=== PATIENT | female | born 1990 | race American Indian/Alaskan Native ===

== ENCOUNTER 2018-06-27 10:09 | Observation (INO) | payer BC ==
--- NOTE | 2018-06-22 15:17 | History and Physical Report ---
History of Present Illness Date of examination: 06/27/18 History of present illness: Patient has been reassessed/reevaluated/re-examined. No interval changes. This is a 28 years old female who presents witht complains of dysmenorrhea, dyspareunia, abnormal periods and pelvic pain, but denies abnormal pap smears, menorrhagia, metrorrhagia, post-coital bleeding, abnormal vaginal discharge, breast mass or lumps, depression, anxiety, urinary symptoms, chest pain, palpitations, shortness of breath, leg swelling, back pain, abdominal pain, headaches and bowel problems. The patient notes that she is sexually active and uses contraception. The patient reports that she has irregular menses. The onset of symptoms began >3 years ago. Patient s/p mutiple minimally invasive surgeries without relief of her pain. Patient's symptoms when present disrupts her normal daily activities . Pain is located suprapubic, low back, left lateral side and right lateral side. She describes the pain as achy, sharp, dull and cramping. Duration of pain is >1 hour. Patient notes pain is worse with activity, exercise and i ntercourse. Patient notes pain is better with narcotics. The patient denies any nausea, vomiting, rash, myalgias, arthralgias, dysuria, diarrhea, constipation, headache, weight gain, genital sores and inguinal swelling. Pain is cyclic in nature comes monthly Patient desires definitive treatment Vital Signs: Patient Profile: 28 Years Old Female Height: 65 inches (165.10 cm) Weight: 208 pounds (94.55 kg) BMI: 34.61 BSA: 2.01 Past History : 2 Term Births: 2 Premature Births: 0 Living Children: 2 Para: 2 Mult. Births: 0 Prev : 0 Prev. attempt? 0 Aborta: 0 Elect. Ab: 0 Spont. Ab: 0 Ectopics: 0 # 1 Delivery date: 01/14/2007 Weeks Gestation: 39 Delivery type: Sex: Female weight: 9' Comments: baby stopped moving. # 2 Delivery date: 06/23/2011 Weeks Gestation: 40 Delivery type: Sex: Female weight: 9 Comments: GDM. HTN, had tl at the same time SIDE LASTER TACK History Operations: x 2 last with Tubal Ligation Laparoscopy (2010) MICAELA and ovarian cystectomy 2 ablations (2012 & 2014) Abnormal PAP: positive Uterine Anomaly: positive Infection History HIV Risk Eval: no Hx of STD: HPV Current Allergies (reviewed today): * SULFA (Critical) Past Medical History: pre diabetic Fibroids Past Surgical History: Reviewed history from 06/07/2015 and no changes required: x 2 last with Tubal Ligation Laparoscopy (2010) MICAELA and ovarian cystectomy 2 ablations (2012 & 2014) Family History Summary: Reviewed history Last on 06/07/2015 and no changes required:06/22/2018 Daughter (biol.) - Has Family History of Diabetes - father. - Entered On: 05/06/2015 Social History: Patient is Occupation: Payment center operation Smoking History: Patient has never smoked. Risk Factors: Smoked Tobacco Use: Never smoker Smokeless Tobacco Use: Never Passive smoke exposure: no Drug use: yes HIV high-risk behavior: no Alcohol use: yes Exercise: yes Seatbelt use: 100 % Review of Systems General Complains of fatigue. Denies fever, chills, sweats, anorexia, weakness, malaise, weight loss and sleep disorder. Complains of pelvic pain, decreased libido, painful periods and painful sex. Denies vaginal discharge, incontinence, dysuria, hematuria, urinary frequency, amenorrhea, menorrhagia, abnormal vaginal bleeding, genital sores, urinary urgency, hot flashes, vaginal dryness, vaginal itching and vaginal odor. CV Denies chest pains, palpitations, syncope, dyspnea on exertion, orthopnea, PND and peripheral edema. Resp Denies cough, dyspnea at rest, excessive sputum, hemoptysis, wheezing and pleurisy. GI Denies nausea, vomiting, diarrhea, constipation, change in bowel habits, abdominal pain, melena, hematochezia, jaundice, gas/bloating, indigestion/heartburn, dysphagia and odynophagia. Breast Denies left breast lump, right breast lump, nipple discharge, bloody discharge from nipple, breast pain, abnormal mammogram and breast enlargement. Psych Denies depression, anxiety, irritability and mood swings. Past History Past Medical History: other (See HPI) Past Surgical History: , Other (See HPI) Social history: full code, other (See HPI) Family history: other (See HPI) Medications and Allergies Allergies Allergy/AdvReac Type Severity Reaction Status Date / Time Sulfa (Sulfonamide Allergy Hives Verified 06/21/18 11:51 Antibiotics) Home Medications Medication Instructions Recorded Confirmed Last Taken Type No Known Home Medications [No 06/21/18 06/21/18 Unknown History Reported Home Medications] Review of Systems Constitutional: other (See HPI) Exam - Physical Exam Narrative exam: HEENT: normocephalic, no lesions or deformities Skin no significant abnormal lesions or rashes .Tatoo(s) are present Chest: respiratory effort normal, clear to auscultation Breasts: skin/areolae normal, no masses, no nipple discharge, no erythema/warmth/tenderness, and axillae normal. CV: regular, normal S1-S2, no murmur, no rub, no gallop Abdomen: obese normal bowel sounds, soft, no HSM Well healed pfannenstiel scar tender, suprapubic Musculoskeletal: grossly normal ROM in joints, no joint tenderness or muscle weakness Neuro: no gross anomalities Extremities: no clubbing, cyanosis, or edema SIDE LASTER TACK Exams Vulva/Vagina: normal appearance, no discharge, lesions. No evidence of cystocele or rectocele. Cervix: normal appearance, no lesions, no discharge Uterus: unable to palpate due to patient's guarding Adnexae: unable to palpate due to patient's guarding Rectovaginal: exam defered Results - Labs CBC & Chem 7: 06/24/18 10:55 06/24/18 10:55 Assessment and Plan - Patient Problems (1) Chronic pelvic pain in female Current Visit: No Status: Acute Plan to address problem: Discussed possible etiologies including pelvic adhesive disease, endometriosis, adenomyosis or inflammatory causes. Patient desires definitive treatment. Conservaive treatments have failed Patient's symptoms when present disrupts her normal daily activities Patient desires hysterectomy Discussed risks and benefits of laparotomy, laparoscopy, vaginal and robotic assisted approaches for hysterectomies Patient desires robotic assisted total hysterectomy. Patient desires robotic assisted total hysterectomy. Consent reviewed and signed . The risks and alternatives for this surgery were reviewed with the patient. Discuss the risks of the surgery including infection, bleeding possibly heavy enough to require a blood transfusion, possible damage to bowel, bladder or ureter. Patient understand that this surgery with make her sterile.Patient understands if her ovaries are removed she will become menopausal. Also if unable to complete robitcally a laparotomy may required. Patient advised the small risks of spreading of malignancy if morcellator is used during the surgery patient understands and approve of use if necessary. Patient understand this surgical intervention may not cure her pain. Patient understands and desires to proceed. (2) Pelvic peritoneal adhesions, female Current Visit: No Status: Acute Plan to address problem: Possible etiology of #s 1 and 3 (3) Dyspareunia Current Visit: No Status: Acute (4) Uterine myoma Current Visit: No Status: Acute Qualifiers: Uterine leiomyoma location: intramural Qualified Code(s): D25.1 - Intramural leiomyoma of uterus Plan to address problem: Possible etiology of #1
[2018-06-24 11:14] LABS: Basophils % (Auto) 0.5 % (0.0-1.8); Eosinophils # (Auto) 0.1 K/mm3 (0.0-0.4); Eosinophils % (Auto) 2.1 % (0.0-4.3); Hematocrit 37.7 % (30.3-42.9); Hemoglobin 12.3 gm/dl (10.1-14.3); Lymphocytes # (Auto) 2.2 K/mm3 (1.2-5.4); Lymphocytes % (Auto) 33.7 % (13.4-35.0); Mean Corpuscular HGB Conc 33 % (30-34); Mean Corpuscular Volume 82 fl (79-97); Monocytes # (Auto) 0.5 K/mm3 (0.0-0.8); Monocytes % (Auto) 8.1 % (0.0-7.3); Platelet Count 234 K/mm3 (140-440); Red Cell Distribution Width 14.3 % (13.2-15.2)
--- NOTE | 2018-06-24 11:22 | Anesthesia Consultation ---
Anesthesia Consult and Med Hx Date of service: 06/24/18 - Airway Anesthetic Teeth Evaluation: Good ROM Head & Neck: Adequate Mental/Hyoid Distance: Adequate Mallampati Class: Class III Intubation Access Assessment: Possibly Difficult - Pulmonary Exam CTA: Yes - Cardiac Exam Cardiac Exam: RRR - Pre-Operative Health Status ASA Pre-Surgery Classification: ASA2 Proposed Anesthetic Plan: General Nerve Block: TAP - Pulmonary Hx Smoking: Yes (THC) Hx Asthma: No Hx Respiratory Symptoms: No - Cardiovascular System Hx Hypertension: No Hx Heart Attack/AMI: No - Central Nervous System CVA: No Hx Psychiatric Problems: No - Gastrointestinal Hx Gastroesophageal Reflux Disease: Yes (treated with nexium) - Endocrine Hx Renal Disease: No Hx Liver Disease: No Hx Insulin Dependent Diabetes: No Hx Non-Insulin Dependent Diabetes: No Hx Thyroid Disease: No - Other Systems Hx Alcohol Use: Yes (Occas) Hx Substance Use: Yes (Marijuana daily) Hx Obesity: Yes - Additional Comments Anesthesia Medical History Comments: No hx anesthetic complications. Consented for TAP block for postoperative analgesia.
[2018-06-24 11:36] LABS: BUN/Creatinine Ratio 17; Blood Urea Nitrogen 10 mg/dL (7-17); Hemolysis Index 11
[~2018-06-27 10:09] MED LIST: LACTATED RINGERS 1,000 ML IV SCH; NEURONTIN PO NR; SUBLIMAZE IV PRN; VERSED IV NR
[2018-06-27] MEDS ORDERED: MARCAINE 0.25% INFILTRATI ONE (10:35)
[2018-06-27] MEDS ORDERED: DECADRON ONE ×2 (10:35→13:44)
[2018-06-27] MEDS ORDERED: ANCEF/STERILE WATER 2 GM/20 ML 2 GM/20 ML SYRINGE IV NR (12:00)
[2018-06-27] MEDS ORDERED: DILAUDID IV PRN (12:14)
--- NOTE | 2018-06-27 12:14 | Anesthesia Day of Surgery ---
Anesthesia Day of Surgery - Day of Surgery Patient Examined: Yes Patient H&P Reviewed: Yes Patient is NPO: Yes
[2018-06-27] MEDS ORDERED: ZEMURON IV ONE (12:16)
[2018-06-27] MEDS ORDERED: XYLOCAINE MPF 2% ONE (12:16)
[2018-06-27] MEDS ORDERED: DIPRIVAN 10 MG/ML IV ONE (12:17)
[2018-06-27] MEDS ORDERED: NEOSPORIN GU IR ONE ×2 (13:42→15:06)
[2018-06-27] MEDS ORDERED: ZOFRAN ONE (13:44)
[2018-06-27] MEDS ORDERED: NACL 0.9% IR ONE (15:06)
--- NOTE | 2018-06-27 15:40 | Operative Report ---
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 Procedure name(s):Robotic Assisted Total Hysterectomy with bilateral salp ingectomy Surgeon: Deepak Szymanski MD Process Machine Operator: Sofya Hensley certified scrub tech Anesthesia: General with TAP Block EBL: 30 mL Complications: None Findings: Patient with uterus approximately 8-10 weeks in size down just above the pelvic vessels posterior cul-de-sac and omentum adhesions to the anterior abdominal wall with normal ovaries bilaterally and bilateral interrupted fa llopian tubes Specimen(s): Uterus with cervix and bilateral fallopian tubes Procedure: Patient was brought to the operating room where general anesthesia was induced without difficulty. Patient was placed in the dorsal lithotomy position. Prepped and draped in the usual sterile manner for robotic procedure. Carpio catheter was placed without difficulty. Speculum was placed in the vagina. A MEDIUM V-Care Uterine manipulator was placed without difficulty. Attention was now switched to the patient's abdomen. A vertical supra-umbilicus incision was made with a scalpel. A 10-12 trocar was placed in this incision under direct visualization. Intra-abdominal placement was verified with no evidence of internal organ damage. The patient pelvic findings were noted as above. It was determined that the patient was a candidate for robotic procedure. On both sides the umbilical incision at about 8 cm, incisions were made for robotic trocar. Each robotic trocar was placed under direct vi sualization with no evidence of internal organ damage. One 5 mm public relations assistant port was placed 2 fingerbreadths above the right iliac crest. At this time the patient was placed in extreme Trendelenburg. The da Kori robot was then docked on the patient's left side. The trocars connected to the robot appropriately. At this time I took my place under the robotic operating lopes. The omental adhesions were then taken down with robotic hands with good hemostasis. Starting on the patient's right side the mesosalpinx of the tube were cauterized for mild distal to proximal tube. Bipolar cautery was placed across the proximal portion of the fallopian tube. This area was cauterized and cut the fallopian tube was then removed from the large nursing assistants teacher port. Utero- ovarian complex was cauterized and cut. This was followed by cauterizing and cutting the right fallopian tube and right round ligament. The broad ligament was then opened. The bladder flap was formed anteriorly. The posterior broad ligament was then excised. The uterine vessels were skeletonized. The ureter was clearly seen out of the operative field. The bladder was pushed away from the anterior uterus. Attention was then switched to the patient's left side. The same procedure was repeated on the left side with perform the salpingectomy followed by isolating the uterine vessels cauterized and cutting and completing the bladder flap from the left side. At this time the uterus was appearing very cyanotic. After inspecting the bladder flap insured no evidence of bladder injury, the colpotomy was then started. Incision started at 6:00 until the V- Care could be seen. This incision was extended from 6:00 to 9:00. Then from 6:00 to 3:00. Then from 9:00 to 12:00. This incision was extended from 3:00 to 12:00. At this time colpotomy was complete with no evidence of adjacent organ damage. The public relations assistant remove the uterus from through the colpotomy site. The vaginal cuff was irrigated and cauterized and found to be hemostatic. The cuff was closed with roboticly using 0 V- Lock suture. This closure was hemostatic after irrigation and Bovie. All pedicles were inspected and found to be hemostatic. The ureters were identified bilaterally and found to be functioning normal. The patient had clear urine in the Carpio catheter with no evidence of mixture with blood. Deana was placed on the cuff and pedicles for postoperative hemostasis . All instruments were then removed. The large trocar sites were closed in layers and 4-0 Vicryl. The smaller incisions were closed subcuticularly with 4-0 Vicryl. The patient tolerated procedure well. She was awakened in the operating room and accompanied to the recovery room in good condition.
[2018-06-27] MEDS ORDERED: ANCEF/NS 1 GM/50 ML 1 GM/50 ML BAG IV SCH ×2 (17:06→22:00)
[2018-06-27] MEDS ORDERED: D5LR 1,000 ML IV SCH (17:06)
[2018-06-27] MEDS ORDERED: NORCO 5/325 PO PRN (17:06)
[2018-06-27] MEDS: COLACE PO SCH (23:02)
[2018-06-28] MEDS: TORADOL IV SCH ×4 (05:20→11:27)
[2018-06-28 05:28] LABS: Hemoglobin 12.5 gm/dl (10.1-14.3)
[2018-06-28] MEDS ORDERED: ANCEF/NS 1 GM/50 ML 1 GM/50 ML BAG IV SCH (06:00)
[2018-06-28] MEDS ORDERED: TORADOL IV SCH (06:00)
--- NOTE | 2018-06-28 08:44 | Progress Note ---
Assessment and Plan - Patient Problems (1) Chronic pelvic pain in female Current Visit: No Status: Acute (2) Pelvic peritoneal adhesions, female Current Visit: No Status: Acute (3) Dyspareunia Current Visit: No Status: Acute (4) Uterine myoma Current Visit: No Status: Acute Qualifiers: Uterine leiomyoma location: intramural Qualified Code(s): D25.1 - Intramural leiomyoma of uterus (5) Status post hysterectomy Current Visit: Yes Status: Acute Plan to address problem: Postoperative day #1. Discuss operative findings with patient and questions answered. Patient without fever. We'll ambulate in halls. We will continue routine postoperative care. Patient's postoperative hematocrit 38%. Patient to start regular diet this a.m. reassess the regular diet for discharge. Nurse detail the patient did have our phone with spouse patient may have tension headaches will reevaluated (6) Status post robot-assisted surgical procedure Current Visit: Yes Status: Acute Subjective Date of service: 06/28/18 Patient Reports: Positive: feels better, pain is less, tolerating liquids well, voiding w/o difficulty, flatus, afebrile (patient going of headache denies blurred vision) Objective Vital Signs - 12hr 06/28/18 00:00 Respiratory 18 Rate Respiratory 18 Rate [Abdomen] - General physical appearance well developed, well nourished, no distress - Respiratory normal expansion - Abdomen soft, tender (appropriately), bowel sounds normal, distended (slightly), surgical scars (Healing well) - Integumentary no rash, no growths, no abnormal pigmentation - Neurologic normal coordination, normal sensation - Labs 06/28/18 03:41 06/24/18 10:55
[2018-06-28] MEDS: COLACE PO SCH (11:29)
[2018-06-28 13:01] VITALS: BP 114/72
--- NOTE | 2018-06-28 17:25 | Short Stay Summary ---
Short Stay Documentation Date of service: 06/28/18 - History H&P: dictated Past Medical History: other (See HPI) Past Surgical History: , Other (See HPI) Social history: full code, other (See HPI) - Allergies and Medications Current Medications: Allergies Sulfa (Sulfonamide Antibiotics) Allergy (Verified 06/21/18 11:51) Hives Home Medications Medication Instructions Recorded Confirmed Last Taken Type Ibuprofen [Motrin 800 MG tab] 800 mg PO Q6H PRN #30 tablet 06/27/18 Unknown Rx oxyCODONE /ACETAMINOPHEN [Percocet 1 - 2 tab PO Q4H PRN #30 tablet 06/27/18 Unknown Rx 5/325 mg] - Brief post op/procedure progress note Date of procedure: 06/28/18 (See Dictated) - Hospital course Hospital course: Patient was admitted and underwent above procedure without complications. Her post operative course was benign she was afebrile throughout. Patient pos toperative day 1 hematocrit was in an acceptable range. Patient had no orthostatic symptoms. Patient was tolerating regular diet and voiding without difficulty at time of discharge. Patient incision was healing well without evidence of infection. - Disposition Condition at discharge: Good Disposition: DC-01 TO HOME OR SELFCARE - Discharge Diagnoses (1) Chronic pelvic pain in female Status: Acute (2) Pelvic peritoneal adhesions, female Status: Acute (3) Dyspareunia Status: Acute (4) Uterine myoma Status: Acute Qualifiers: Uterine leiomyoma location: intramural Qualified Code(s): D25.1 - Intramural leiomyoma of uterus (5) Status post hysterectomy Status: Acute (6) Status post robot-assisted surgical procedure Status: Acute Short Stay Discharge Plan Activity: advance as tolerated Diet: regular Wound: open to air Additional Instructions: [] Smoking cessation referral if applicable(refer to patient education folder for contact #) [] Refer to [facility] Booklet Call your doctor immediately for: * Fever > 100.5 * Heavy vaginal bleeding ( >1 pad per hour) * Severe persistent headache * Shortness of breath * Reddened, hot, painful area to leg or breast Patient instructed no heavy lifting for 4 weeks. No intercourse for 8 weeks. Call office for fever, chills, nausea, vomiting or pain not controlled by pain medications. Ambulation is encouraged. Patient's call for heavy vaginal bleeding. Patient instructed to keep her scheduled post operative office appointment. Follow up with: MARK WATT DO [Primary Care Provider] - 7 Days Forms: [facility] Discharge Summary, Discharge Signature Page Prescriptions: Ibuprofen [Motrin 800 MG tab] 800 mg PO Q6H PRN #30 tablet PRN Reason: Pain oxyCODONE /ACETAMINOPHEN [Percocet 5/325 mg] 1 - 2 tab PO Q4H PRN #30 tablet PRN Reason: Pain, Moderate
== END 2018-06-28 13:30 | disposition home or self-care (01) ==
LOC: OR 10:09 → OB 15:41
PROVIDERS: ADMIT Obstetrics & Gynecology; ATTEND Obstetrics & Gynecology
DX: D25.9 Leiomyoma of uterus, unspecified (principal); N73.6 Female pelvic peritoneal adhesions (postinfective); N94.10 Unspecified dyspareunia; Z98.890 Other specified postprocedural states; Z90.710 Acquired absence of both cervix and uterus; Z98.51 Tubal ligation status; Z88.2 Allergy status to sulfonamides
CPT/HCPCS: 36415; 58552; 64450; 80048; 84703; 85014; 85018; 85025; 86850; 86900; 86901; 88302; 88307; 96365; 96366; 96375; 96376; G0378; J0690; J1100; J1170; J1885; J2250; J2405; J2704; J3010; J7120; J7121; S2900